=== PATIENT | male | born 1995 | race Caucasian/White ===

== ENCOUNTER 2020-05-06 23:16 | Emergency (ER) | payer SELFPAY ==
[~2020-05-06] VITALS: Ht 170.2 cm; Wt 113.4 kg
[2020-05-06 23:24] VITALS: Ht 170.2 cm; Wt 113.4 kg
[2020-05-07 00:10] VITALS: BP 129/86
== END 2020-05-07 00:10 | disposition home or self-care (01) ==
LOC: ED 23:16
DX: Z20.828 Contact with and (suspected) exposure to other viral communicable diseases (principal); M79.10 Myalgia, unspecified site
CPT/HCPCS: Q0092; U0003-CS

== ENCOUNTER 2020-05-30 13:44 | Emergency (ER) | payer MEDICAID ==
[~2020-05-30] VITALS: Ht 170.2 cm; Wt 101.6 kg
[2020-05-30 13:57] VITALS: Ht 170.2 cm; Wt 101.6 kg
[2020-05-30 18:19] VITALS: BP 138/47
== END 2020-05-30 18:00 | disposition home or self-care (01) ==
LOC: ED 13:44
DX: J02.9 Acute pharyngitis, unspecified (principal); Z20.828 Contact with and (suspected) exposure to other viral communicable diseases
CPT/HCPCS: J1885; U0003-CS